=== PATIENT | female | born 1955 ===

== ENCOUNTER 2021-02-01 12:06 | Outpatient (CLI) | payer OTHER ==
[~2021-02-01 12:06] MED LIST: MACROBID 100 M100 MG PO; ULTRACET PO
== END 2021-02-01 13:11 | disposition home or self-care (01) ==
LOC: OFIC 805 12:06
PROVIDERS: ATTEND Otolaryngology Otology & Neurotology
DX: H81.11 Benign paroxysmal vertigo, right ear (principal)

== ENCOUNTER 2021-03-08 10:55 | Outpatient (CLI) | payer OTHER | END 2021-03-08 12:36 | disposition home or self-care (01) | LOC: OFIC 805 10:55 | PROVIDERS: ATTEND Otolaryngology Otology & Neurotology | DX: H81.11 Benign paroxysmal vertigo, right ear (principal) ==